=== PATIENT | male | born 1960 | race Caucasian/White ===

== ENCOUNTER 2016-11-03 16:29 | Emergency (ER) ==
--- NOTE | 2016-11-03 16:37 | ED.PDOC ---
General ED Provider: Dr. ANUPAMA SIU JR Chief Complaint: Bite Stated Complaint: BIT ON RIGHT UPPER ARM YESTERDAY. UNSURE WHAT BIT HIM. RED AND SWOLLEN. RUNNING A FEVER. TOOK MOTRIN 1 HOUR AGO. ALSO HAS RASH TO CHEST AND ABD [End]. 99.3 95 20 96% 145/95 2/10 Time Seen by Physician: 16:50 Mode of Arrival: Walk-In Information Source: Patient Exam Limitations: No limitations Nursing and Triage Documentation Reviewed and Agree: No Review of Systems - Review Of Systems Constitutional: Reports: Malaise Eyes: Reports: No symptoms Ears, Nose, Mouth, Throat: Reports: No symptoms Respiratory: Reports: No symptoms Cardiac: Reports: No symptoms GI: Reports: No symptoms : Reports: No symptoms Musculoskeletal: Reports: No symptoms Skin: Reports: Lesions, Rash Neurological: Reports: No symptoms Endocrine: Reports: No symptoms Hematologic/Lymphatic: Reports: No symptoms All Other Systems: Other Past Medical History - Past Medical History Previously Healthy: Yes Endocrine: Reports: None Cardiovascular: Reports: None Respiratory: Reports: None Hematological: Reports: None Gastrointestinal: Reports: None Genitourinary: Reports: None Neuro/Psych: Reports: None Musculoskeletal: Reports: None Cancer: Reports: None - Surgical History General Surgical History: Reports: None - Family History Family History: Reports: None Physical Exam - Physical Exam Appearance: Ill-appearing Ill-appearing: Mild Pain Distress: Mild Eyes: OMAR, EOMI, Conjunctiva clear ENT: Ears normal, Nose normal, Oropharynx normal Neck: Supple Respiratory: Airway patent, Breath sounds clear, Breath sounds equal, Respirations nonlabored Cardiovascular: RRR, Pulses normal, No rub, No murmur GI/: Soft, Nontender, No masses, Bowel sounds normal, No Organomegaly Musculoskeletal: Normal strength, ROM intact, No edema, No calf tenderness Skin: Warm, Dry, Normal color (notwe lesions) Neurological: Sensation intact, Motor intact, Reflexes intact, Cranial nerves intact, Alert, Oriented Critical Care Note - Critical Care Note Total Time (mins): 0 Course - Course Vital Signs: Temp Pulse Resp BP Pulse Ox 11/03/16 16:29 99.3 F 95 H 20 145/95 H 96 Departure - Departure Time of Disposition: 16:50 Disposition: HOME SELF-CARE Discharge Problem: Insect bites and stings Instructions: Insect Bite or Sting (ED) Condition: Good Pt referred to PMD for follow-up: Yes Additional Instructions: avoid similar areas- moderate reaction to bite begin Keflex antibiotic if swelling is worsening if rash worsening may begin medrol dosepack return if difficulty breathing hoarseness or throat swelling may use antihistamines for itching(Benadryl causes drowsiness try jan claritin or zyrtec) Prescriptions: Cephalexin [Keflex] 500 mg PO QID #40 capsule Loratadine [Claritin] 10 mg PO DAILY PRN #30 tablet PRN Reason: Allergy Symptoms Methylprednisolone [Medrol Dosepak] 4 mg PO DIRECTED #1 pkg Allergies/Adverse Reactions: Allergies No Known Allergies Allergy (Verified 11/03/16 16:34) Home Medications: Ambulatory Orders Cephalexin [Keflex] 500 mg PO QID #40 capsule 11/03/16 Loratadine [Claritin] 10 mg PO DAILY PRN #30 tablet 11/03/16 Methylprednisolone [Medrol Dosepak] 4 mg PO DIRECTED #1 pkg 11/03/16
[2016-11-03 16:47] VITALS: BP 145/95; TEMP 99.3; BMI 31.2
== END 2016-11-03 17:00 | disposition home or self-care (01) ==
LOC: ED 16:29
DX: S40.861A Insect bite (nonvenomous) of right upper arm, initial encounter (principal); R21 Rash and other nonspecific skin eruption; R50.9 Fever, unspecified; W57.XXXA Bitten or stung by nonvenomous insect and other nonvenomous arthropods, initial encounter
CPT/HCPCS: 99282